=== PATIENT | female | born 1970 | race Two or more races ===

== ENCOUNTER → 2020-10-29 | Outpatient (CLI) | payer BC ==
[~2020-10-29] MED LIST: CONTRAST GIVEN. MC PRN
[2020-10-29] MEDS: IOHEXOL 300 MG/ML 100ML VIAL. IV ONE (10:15)
[2020-10-29] MEDS: IOHEXOL 240 MG/ML 50ML VIAL. PO ONE (10:15)
--- NOTE | 2020-10-29 11:46 | RAD ---
EXAM: Abdomen and pelvis CT with intravenous contrast. HISTORY: Pain. TECHNIQUE: Computed tomographic images of the abdomen and pelvis were obtained following the administ ration of intravenous contrast. Multiplanar reformatting was performed. *One or more of the following individualized dose reduction techniques were utilized for this examina tion: 1. Automated exposure control. 2. Adjustment of the mA and/or kV according to patient size. 3. Use of iterative reconstruction technique. COMPARISON: None. FINDINGS: Evaluation of the lower thorax demonstrates a 4 mm nodule with surrounding groundglass with in the posterior medial right lower lobe. No hepatic lesion is seen. The gallbladder, pancreas, splee n, stomach, adrenal glands and kidneys are unremarkable. There is no appendicitis. There is a moderate to large amount of colonic stool. There is no evidence of bowel obstruction. There is an IUD within the endometrial cavity. There is a 2.8 cm right ovarian cyst. There is a small region of hypodensity within the vagina at the level of the cervix, likely due to a nabothian cyst or fluid within the vaginal fornix. The bladder is unremarkable. The aorta is normal in caliber. There is no lymphadenopathy. There is no suspicious osseous lesion. IMPRESSION: 1. 2.8 cm right ovarian cyst. 2. Moderate colonic stool. Correlate for constipation. 3. 4 mm pulmonary nodule with surrounding groundglass within the right lower lobe. Follow-up can be p erformed in one year if there are risk factors for for neoplasm. Electronically signed by: Rupa Souza MD (10/29/2020 11:44 AM) [id number]
== END ==
LOC: CT 10:16
PROVIDERS: ATTEND Family Medicine
DX: N83.291 Other ovarian cyst, right side (principal); R91.1 Solitary pulmonary nodule
CPT/HCPCS: 74177; Q9966; Q9967

== ENCOUNTER → 2021-10-10 | Outpatient (CLI) | payer BC ==
--- NOTE | 2021-10-10 16:33 | RAD ---
INDICATION: 51 years of age asymptomatic female patient presents for screening mammography. TECHNIQUE: Full field craniocaudal and mediolateral oblique images of both breasts were obtained usi ng digital technique with tomosynthesis. COMPARISON: Prior mammographic imaging dating back to 02/15/2017. BREAST COMPOSITION: Category D: The breasts are extremely dense. This may lower the sensitivity of m ammography. FINDINGS: No suspicious masses, microcalcifications or architectural distortion is present to suggest malignanc y in either breast. The visualized axillae are unremarkable. IMPRESSION: No mammographic evidence of malignancy. RECOMMENDATION: Annual screening mammography is recommended, unless clinically indicated sooner based on symptoms or change in physical exam. BIRADS 1: NEGATIVE This study was interpreted with the benefit of Computerized Aided Detection (CAD). ?Your patient's mammogram demonstrates that she has dense breast tissue (breast density category C or D), which could hide abnormalities, and if she has other risk factors for breast cancer that have be en identified, she might benefit from supplemental screening tests that may be suggested by you as he r ordering physician. Dense breast tissue, in and of itself, is a relatively common condition. Theref ore, this information is not provided to cause undue concern, but rather to raise your awareness and to promote discussion with your patient regarding the presence of other risk factors, in addition to dense breast tissue. Your patient's mammography results will be sent to her. Patient information is entered into the reminder system with a target due date for the next screening mammogram. Mammography is the most sensitive method for finding small breast cancers, but it does not detect the m all and is not a substitute for careful clinical examination. A negative mammogram does not negate a clinically suspicious finding and should not result in delay in biopsying a clinically suspicious a bnormality. "Our facility is accredited by the [employer] Mammography Program." Electronically signed by: Deo Reardon DO (10/10/2021 4:31 PM) [id number]
== END ==
LOC: MAMMO 13:53
DX: Z12.31 Encounter for screening mammogram for malignant neoplasm of breast (principal)
CPT/HCPCS: 77063; 77067